=== PATIENT | female | born 1980 | race Caucasian/White ===

== ENCOUNTER 2017-10-07 20:59 | Emergency (ER) | payer MEDICAID ==
[2017-10-07 21:16] VITALS: BP 127/90
[2017-10-07] MEDS ORDERED: Ketorolac 0.5% Ophth Soln 3 ML Bottle EYERT SCH (22:00)
--- NOTE | 2017-10-07 22:15 | EDM.PDOC ---
ED HPI GENERAL MEDICAL PROBLEM - General Chief Complaint: Eye Problems Stated Complaint: CONTACT IN THE EYE Time Seen by Provider: 10/07/17 21:28 Source of Information: Reports: Patient History Limitations: Reports: No Limitations - History of Present Illness INITIAL COMMENTS - FREE TEXT/NARRATIVE: This this patient comes in complaining of losing a contact lens in her right eye. She said that earlier today she went to take it out and it slipped up and behind the right eye. She says that she can feel it above the right upper lid mostly on the lateral side. She said her vision is unchanged. Right eye Pain Score (Numeric/FACES): 2 - Related Data Allergies Allergy/AdvReac Type Severity Reaction Status Date / Time No Known Allergies Allergy Verified 10/07/17 21:17 Home Meds: Home Meds Venlafaxine [Effexor XR] 150 mg PO QPM 12/20/15 [History] ClonazePAM [KlonoPIN] 0.5 mg PO ASDIRECTED PRN 10/07/17 [History] Past Medical History Gastrointestinal History: Reports: GERD Other Gastrointestinal History: gastroparesis EDITORIAL INTERN History: Reports: Other OB/BYN History: HPV Psychiatric History: Reports: Anxiety, Depression Oncologic (Cancer) History: Reports: Cervix - Infectious Disease History Infectious Disease History: Reports: Chicken Pox - Past Surgical History Female Surgical History: Reports: LEEP Oncologic Surgical History: Reports: Other (See Below) Other Oncologic Surgeries/Procedures: LEEP procedure Social & Family History - Family History Family Medical History: Noncontributory HEENT: Reports: Other (See Below) Other HEENT Family History: mother legally blind Cardiac: Reports: SD GI: Reports: Cholelithiasis OBGYN: Reports: Dysfunctional uterine bleeding, Other (See Below) Other OBGYN Family History: ovarian cysts Musculoskeletal: Reports: Arthritis Psychiatric: Reports: Anxiety, Depression Endocrine/Metabolic: Reports: Hypothyroidism Hematologic: Reports: Anemia - Tobacco Use Smoking Status *Q: Current Every Day Smoker Years of Tobacco use: 20 Packs/Tins Daily: 1 Used Tobacco, but Quit: No Second Hand Smoke Exposure: Yes - Caffeine Use Caffeine Use: Reports: Coffee, Soda - Alcohol Use Days Per Week of Alcohol Use: 3 Number of Drinks Per Day: 5 Total Drinks Per Week: 15 - Recreational Drug Use Recreational Drug Use: No ED ROS GENERAL - Review of Systems Review Of Systems: ROS reveals no pertinent complaints other than HPI. ED EXAM GENERAL W FULL EYE - Physical Exam Exam: See Below Exam Limited By: No Limitations General Appearance: Alert, WD/WN, Mild Distress Eye Exam: Bilateral Eye: EOMI, PERRL, Other (See treatment course) Course - Vital Signs Last Recorded V/S: Last Vital Signs Temp 35.6 C 10/07/17 21:15 Pulse 94 10/07/17 21:15 Resp 14 10/07/17 21:15 BP 127/90 10/07/17 21:15 Pulse Ox 98 10/07/17 21:15 - Orders/Labs/Meds Meds: Medications Discontinued Medications Generic Name Dose Route Start Last Admin Trade Name Freq PRN Reason Stop Dose Admin Ketorolac Tromethamine 1 ml 10/07/17 22:00 10/07/17 22:18 Acular 0.5% Ophth Soln EYERT 1 drop QID [facility] Administration - Re-Assessments/Exams Free Text/Narrative Re-Assessment/Exam: 10/08/17 06:56 The right eye was examined closely and the lid was raised and no contact lens was seen. The patient says it has a blue tent to it. 2 saline soaked cotton swabs were then used to lift the upper lid and the swab was inserted into the conjunctival fornix so that the fornix was completely viewed over the course of the entire upper half of the eye. No contact lens was seen. The lower lid was then also elevated with swabs and again no contact lens was seen. I'm certain that I examined the eye fully and that a contact lens is not present under the upper lid. The right cornea was also examined and I don't see the presence of a contact lens. The patient insists that she can feel the lost contact lens high up under the upper lid despite my negative exam. I explained there is probably some conjunctival irritation. I'll treat her with some Acular and gentamicin but she will need to have a formal eye exam if this is not resolved by Tuesday and she was told to return to the emergency room at any time if she seems to be getting worse Departure - Departure Time of Disposition: 22:11 Disposition: Home, Self-Care 01 Condition: Fair Clinical Impression: Conjunctival abrasion, Contact lens stuck - Discharge Information Instructions: Eye Foreign Body, [id number] Referrals: Jenna Kinney CNM [Primary Care Provider] - Forms: ED Department Discharge Additional Instructions: A misplaced contact lens was not found in your eye. The sensation that you are feeling is probably some irritation or abrasion of the tissues in that area.. To help relieve the discomfort use the ketorolac ophthalmic solution one drop 4 times per day. Also use the antibiotic gentamicin drops 2 drops 4 times per day. If no better by Tuesday then follow-up with your policy issue clerk. If at any time you feel like your vision is deteriorating then return to the emergency department
== END 2017-10-07 22:23 | disposition home or self-care (01) ==
LOC: JP.ED 20:59
DX: S05.01XA Injury of conjunctiva and corneal abrasion without foreign body, right eye, initial encounter (principal); Z79.899 Other long term (current) drug therapy; W22.8XXA Striking against or struck by other objects, initial encounter
CPT/HCPCS: 99283; A9270

== ENCOUNTER 2020-10-17 09:37 | Day surgery (SDC) | payer MEDICAID ==
[~2020-10-17 09:37] MED LIST: Midazolam 1 MG/ML 2 ML SDV ONE; Propofol 200 MG/20 ML SDV ONE; fentaNYL 100 MCG/2 ML SDV ONE
[2020-10-17] MEDS ORDERED: Sodium Chloride 0.9% 1,000 ML IV SCH (10:00)
[2020-10-17] MEDS ORDERED: Propofol 200 MG/20 ML SDV ONE (10:27)
[2020-10-17 11:42] VITALS: BP 122/87; PULSE 55
--- NOTE | 2020-10-17 13:43 | OR ---
DATE OF PROCEDURE: 10/17/2020 SURGEON: Joel Day MD PROCEDURES: 1. Esophagogastroduodenoscopy. 2. Colonoscopy. FINDINGS: 1. Normal EGD. 2. Polyp in sigmoid colon, approximately 5 mm, completely removed using cold biopsy forceps. COMPLICATIONS: None. RECONCILIATION MANAGER: None. PREOPERATIVE DIAGNOSIS: Dysphagia/gastrointestinal bleeding. POSTOPERATIVE DIAGNOSIS: Dysphagia/gastrointestinal bleeding. RISKS: Risks, benefits, alternatives, and limitations including but not limited to infection, bleeding, and perforation along with false positives and false negatives were explained to the patient who wished to proceed. PROCEDURE IN DETAIL: The patient was placed in left lateral decubitus position. The EGD scope was introduced and advanced atraumatically to the second part of the duodenum. No evidence of duodenitis or ulceration. Within the stomach itself, there was no gastritis. No ulceration. The GE junction was normal. The esophagus was normal. No mucosal abnormalities. Digital rectal exam was performed next. Scope was introduced and advanced atraumatically to the ileocecal valve. Scope was brought back to the ascending, transverse, descending colon, and retroflexed. A 5 mm sigmoid colon polyp was identified and completely removed using cold biopsy forceps. No evidence of old or new blood. No masses. No colitis. No abnormalities on retroflexion. No etiology for blood. Prominent hemorrhoids were noted, however, the patient precluded us from banding these preoperatively. The patient tolerated the procedure well. Joel Day MD /[id number]
== END 2020-10-17 12:15 | disposition home or self-care (01) ==
LOC: JP.SDS 09:37
PROVIDERS: ATTEND Surgery
DX: K63.5 Polyp of colon (principal); R13.10 Dysphagia, unspecified; F17.200 Nicotine dependence, unspecified, uncomplicated; Z88.8 Allergy status to other drugs, medicaments and biological substances
CPT/HCPCS: 43235; 45380; J2250; J2704; J3010; J7030; 88305